=== PATIENT | female | born 1940 | race African-American/Black ===

== ENCOUNTER 2017-12-02 11:10 | Inpatient (IN) | payer MEDICARE, OTHER ==
[~2017-12-02] VITALS: Ht 157.5 cm; Wt 55.3 kg
[~2017-12-02 11:10] MED LIST: AMLO2.5T2; VICODIN
--- NOTE | 2017-12-02 11:14 | NUR ---
AAOX3, BIB FAMILY C/O NON RADIATING LEFT SIDED CHEST PAIN SINCE 0630 AM. RR IS EVEN AND UNLABORED WITH NAD NOTED. SKIN IS WARM AND DRY. AWAITING MD FOR EVAL. PLACE ON THE MONITOR.
--- NOTE | 2017-12-02 11:15 | NUR ---
STARTED IVHL LAC 18G AND BLOOD IS DRAWN.
--- NOTE | 2017-12-02 11:26 | NUR ---
DR PINK AT BS FOR EVAL.
[2017-12-02 11:39] LABS: BASOPHILS % (AUTO) 0.2 % (0.0-2.0); EOSINOPHILS # (AUTO) 0.3 /CMM (0.0-0.7); EOSINOPHILS % (AUTO) 2.7 % (0.0-6.0); HEMATOCRIT 34 % (33-45); HEMOGLOBIN 11.4 g/dL (11.5-14.8); LYMPHOCYTES % (AUTO) 10.4 % (20.0-44.0); MEAN CORPUSCULAR HEMOGLOBIN 30 PG (26.0-33.0); MEAN CORPUSCULAR HGB CONC 34 g/dl (31.0-36.0); MEAN CORPUSCULAR VOLUME 88 fL (82-100); MONOCYTES # (AUTO) 0.5 /CMM (0.1-1.30); MONOCYTES % (AUTO) 5.1 % (2.0-12.0); NEUTROPHILS # (AUTO) 8.1 /CMM (1.8-8.9); NEUTROPHILS % (AUTO) 81.6 % (43.0-81.0); PLATELET COUNT (AUTO) 349 /CMM (150-450); RDW COEFFICIENT OF VARIATION 14.1 (11.5-15.0); RED BLOOD CELL COUNT(AUTO) 3.86 MIL/uL (4.0-5.2); WHITE BLOOD COUNT (AUTO) 9.9 K/uL (4.3-11.0)
[2017-12-02 11:54] LABS: INR 0.96 (0.87-1.13)
--- NOTE | 2017-12-02 11:54 | NUR ---
XRAY AT BS
[2017-12-02 11:59] LABS: CALCIUM, SERUM 9.2 mg/dL (8.5-10.1); CARBON DIOXIDE 25 mmol/L (21-32); CHLORIDE 101 mmol/L (98-107); CREATININE 1.4 mg/dL (0.6-1.3); GLUCOSE 85 mg/dL (74-106); POTASSIUM 3.9 mmol/L (3.5-5.1); SODIUM SERUM 137 mmol/L (136-145); UREA NITROGEN, BLOOD 21 mg/dL (7-18)
[2017-12-02 12:05] LABS: TROPONIN I < 0.017 ng/mL (0.00-0.056)
--- NOTE | 2017-12-02 12:22 | NUR ---
PAGED EPIC FOR PANEL
--- NOTE | 2017-12-02 12:27 | NUR ---
CALLED NURSE SUP FOR TELE BED
[2017-12-02] MEDS ORDERED: AMLO5TAB2 PO (12:32)
[2017-12-02] MEDS ORDERED: TRAM50TA2 PO (12:32)
[2017-12-02] MEDS ORDERED: FENT1PAT6 TD (12:32)
[2017-12-02] MEDS ORDERED: MORP15TA PO (12:32)
--- NOTE | 2017-12-02 12:44 | NUR ---
PAGED EPIC FOR PANEL AGAIN
[2017-12-02] MEDS ORDERED: ASPIRIN 325 MG TABLET PO ONE (13:00)
[2017-12-02] MEDS ORDERED: ASPIRIN 325 MG TABLET ONE (13:13)
--- NOTE | 2017-12-02 13:16 | NUR ---
REPORT GIVEN TO VIRGIE FALLON FOR [facility] TELE [id number]
[2017-12-02] MEDS ORDERED: IV NS 0.9% 1,000 ML IV PRN (13:19)
[2017-12-02] MEDS ORDERED: MAG HYDROX/AL HYDROX/SIMETH 30 ML UDC PO PRN (13:30)
[2017-12-02] MEDS ORDERED: FENTANYL TD PATCH (50 MCG/HR) 50 MCG/HR PATCH.TD72 TD SCH (13:30)
[2017-12-02] MEDS ORDERED: Z GUARD REMEDY 2 OZ OINT TP PRN (13:30)
[2017-12-02] MEDS ORDERED: ONDANSETRON HCL/PF 4 MG/2 ML VIAL IVP PRN (13:30)
[2017-12-02] MEDS ORDERED: ACETAMINOPHEN 325 MG TABLET PO PRN (13:30)
[2017-12-02] MEDS ORDERED: TRAMADOL HCL 50 MG TABLET PO PRN (13:30)
[2017-12-02] MEDS ORDERED: MAGNESIUM HYDROXIDE 30 ML UDC PO PRN (13:30)
--- NOTE | 2017-12-02 13:45 | NUR ---
telecommunications professionalinternet application developer notes admitted a 77 years old female patient accompanied by ER nurse and daughter Lauren. Patient is alert and oriented x 4, verbally responsive and able to make needs known. complaint of right abdominal pain. Pain medication given. On tele monitor ST heart rate of 105, no complaint of pain or discomfort at this time. Skin assessment done and skin is intact. IV intact and patent with IVF infusing well. Brenton COLVIN put all admission orders on file. Flu and pneumonia vaccine already received 03/2017. Kept patient clean and comfortable in bed, call light with in patient reach, will continue to monitor accordingly.
[2017-12-02] MEDS: MORPHINE SULFATE IR 15 MG TABLET PO PRN ×2 (14:40→19:46)
[2017-12-02 16:00] VITALS: BP 114/57
--- NOTE | 2017-12-02 19:25 | NUR ---
RN OPEN NOTES RECEIVED PATIENT AWAKE IN BED. A/O X4. NO SIGNS OF DISTRESS OR DISCOMFORT. BREATHING EVEN AND UNLABORED. IV ACCESS IN LAC WITH NS INFUSING, PATENT AND INTACT, NO SIGNS OF REDNESS OR INFILTRATION. BED IN LOW LOCKED POSITION WITH SIDE RAILS X2. CALL LIGHT WITHIN REACH. WILL CONTINUE TO MONITOR.
--- NOTE | 2017-12-02 19:29 | NUR ---
television cable installer closing notes All needs provided, attended, and anticipated. Endorsed to next shift RN to continue care.
[2017-12-02 20:00] VITALS: BP 104/51
[2017-12-02] MEDS: HYDROCODONE/APAP 5/325MG 1 EACH TABLET PO PRN (22:02)
[2017-12-03] VITALS: BP 130/70
[2017-12-03] MEDS: MORPHINE SULFATE IR 15 MG TABLET PO PRN ×2 (03:31→12:08)
[2017-12-03 04:00] VITALS: BP 124/67
--- NOTE | 2017-12-03 06:46 | NUR ---
RN CLOSING NOTES PATIENT RESTING IN BED, EASILY AROUSABLE. A/O X4. NO SIGNS OF DISTRESS OR DISCOMFORT. BREATHING EVEN AND UNLABORED. ON TELE MONITORING WITH SR 88 NOTED. DENIES ANY PAIN AT THIS TIME. IV ACCESS IN LAC WITH NS INFUSING, PATENT AND INTACT, NO SIGNS OF REDNESS OR INFILTRATION. ALL NEEDS MET. NO SIGNIFICANT CHANGES THROUGH THE NIGHT. BED IN LOW LOCKED POSITION WITH SIDE RAILS X2. CALL LIGHT WITHIN REACH. WILL ENDORSE TO AM SHIFT FOR [facility].
--- NOTE | 2017-12-03 07:30 | NUR ---
tele real estate economist: initial assessment received pt in bed awake, a/ox4. no c/o chest pain, sob, or any discomfort. tele rf=[id number]. instructed to call for assistance. no apparent distress noted. will continue to monitor.
[2017-12-03 07:49] LABS: BASOPHILS % (AUTO) 0.5 % (0.0-2.0); EOSINOPHILS # (AUTO) 0.3 /CMM (0.0-0.7); EOSINOPHILS % (AUTO) 3.1 % (0.0-6.0); HEMATOCRIT 30 % (33-45); HEMOGLOBIN 10.4 g/dL (11.5-14.8); LYMPHOCYTES # (AUTO) 1.4 /CMM (0.8-4.8); LYMPHOCYTES % (AUTO) 16.7 % (20.0-44.0); MEAN CORPUSCULAR HEMOGLOBIN 30 PG (26.0-33.0); MEAN CORPUSCULAR HGB CONC 35 g/dl (31.0-36.0); MEAN CORPUSCULAR VOLUME 87 fL (82-100); MONOCYTES # (AUTO) 0.6 /CMM (0.1-1.30); MONOCYTES % (AUTO) 6.7 % (2.0-12.0); NEUTROPHILS # (AUTO) 6.1 /CMM (1.8-8.9); PLATELET COUNT (AUTO) 298 /CMM (150-450); RED BLOOD CELL COUNT(AUTO) 3.47 MIL/uL (4.0-5.2); WHITE BLOOD COUNT (AUTO) 8.4 K/uL (4.3-11.0)
[2017-12-03 08:00] VITALS: BP 101/59
[2017-12-03 08:12] LABS: CARBON DIOXIDE 25 mmol/L (21-32); CHLORIDE 105 mmol/L (98-107); CREATININE 1.2 mg/dL (0.6-1.3); GLUCOSE 85 mg/dL (74-106); MAGNESIUM 1.9 mg/dL (1.8-2.4); POTASSIUM 3.9 mmol/L (3.5-5.1); SODIUM SERUM 141 mmol/L (136-145); UREA NITROGEN, BLOOD 17 mg/dL (7-18)
[2017-12-03 08:15] LABS: CHOLESTEROL 126 mg/dL (<200); HDL CHOLESTEROL 37 mg/dL (40-60); LDL 79 mg/dL (0-99); TRIGLYCERIDES 86 mg/dL (30-150)
[2017-12-03] MEDS: HYDROCODONE/APAP 5/325MG 1 EACH TABLET PO PRN (08:24)
--- NOTE | 2017-12-03 08:24 | NUR ---
tele general farmworker: notes c/o 04/09 right side of lower back. medicated with norco 5/325mg po as ordered. instructed to call for assistance. will continue to monitor.
[2017-12-03] MEDS ORDERED: AMLODIPINE BESYLATE 5 MG TABLET PO SCH (09:00)
[2017-12-03 09:07] VITALS: BP 101/59
--- NOTE | 2017-12-03 09:24 | NUR ---
tele lockstitch zipper setter: notes verbalized relief of pain. instructed to call for assistance. will continue to monitor.
--- NOTE | 2017-12-03 12:08 | NUR ---
tele transfer pumper: notes c/o 05/10 right side of lower back. medicated with morphine ir 15mg po as ordered. instructed to call for assistance. will continue to monitor.
[2017-12-03 12:18] VITALS: BP 106/67
--- NOTE | 2017-12-03 13:08 | NUR ---
tele traffic representative: notes verbalized relief of pain. instructed to call for assistance. will continue to monitor.
--- NOTE | 2017-12-03 13:34 | NUR ---
tele product marketing intern: md visit seen and examined by micheal dobson (acnp) with order. order acknowledged. pt for d'c planning home today per acnp. awaiting cardiology clearance. will continue to monitor.
--- NOTE | 2017-12-03 15:00 | NUR ---
tele client care representative: notes received order to d'c pt home and f/u with pmd. pt has appt with her oncologist at 1600 and will see today as stated.
--- NOTE | 2017-12-03 15:05 | NUR ---
tele museum librarian: d'c instructions h/l removed with tip intact. tele remove. discharged instructions given to pt and will see her oncologist as stated and will f/u with pmd in 3-5 days. pt verbalized understanding and will call his grandson to pick her up.
--- NOTE | 2017-12-03 15:57 | NUR ---
tele powertrain design engineer: discharged discharged home in stable condition with all valuables and d'c papers accompanied by son-in-law via private car.
== END 2017-12-03 15:45 | disposition home or self-care (01) | DRG 383 ==
LOC: ER 11:11 → TELE 13:01
PROVIDERS: ADMIT Nurse Practitioner Acute Care; ATTEND Nurse Practitioner Acute Care
DX: K27.9 Peptic ulcer, site unspecified, unspecified as acute or chronic, without hemorrhage or perforation (principal); N17.0 Acute kidney failure with tubular necrosis; D64.81 Anemia due to antineoplastic chemotherapy; D63.8 Anemia in other chronic diseases classified elsewhere; C34.31 Malignant neoplasm of lower lobe, right bronchus or lung; E03.9 Hypothyroidism, unspecified; I10 Essential (primary) hypertension; K21.9 Gastro-esophageal reflux disease without esophagitis; Z96.643 Presence of artificial hip joint, bilateral; Z87.891 Personal history of nicotine dependence; Z92.21 Personal history of antineoplastic chemotherapy; T45.1X5A Adverse effect of antineoplastic and immunosuppressive drugs, initial encounter; Y92.009 Unspecified place in unspecified non-institutional (private) residence as the place of occurrence of the external cause
CPT/HCPCS: 36415; 71045-TC; 80048-TC; 80061-TC; 83735-TC; 84100-TC; 84439-TC; 84443-TC; 84484-TC; 85025-TC; 85730-TC; 87081-TC; A4606; J7030; Z7610